=== PATIENT | male | born 1990 | race Caucasian/White ===

== ENCOUNTER 2016-12-02 23:14 | Emergency (ER) | payer SELFPAY ==
--- NOTE | 2016-12-03 05:23 | ER ---
ADMIT: 12/02/2016 RM/LOC: ER [facility] MR#: [id number] [address] [facility] [id number] VIKA FOSTER [address] [place] [id number] Emergency Room Report SEX: M AGE: 25 : 1990 DATE: 12/02/2016 The patient is a 25-year-old male with chronic right ankle instability, complains of pain, swelling with minimal injury. Exam remarkable for morbidly obese male with right lateral malleolar effusion. Negative Homans sign. D- dimer negative. X-ray of right ankle shows old avulsion injury lateral malleolus. Recommend lace-up ankle support. Ice, Tylenol, Motrin as needed. Follow up Dr. Suarez as needed. Dwayne Camejo MD/ siria JOB #: [id number] CC: Dwayne Camejo MD, Attending Physician Inez Thurston MD, Family Physician Merline Suarez MD
== END 2016-12-03 00:45 | disposition home or self-care (01) ==
LOC: ER 23:14
DX: M25.471 Effusion, right ankle (principal); F17.210 Nicotine dependence, cigarettes, uncomplicated; E66.9 Obesity, unspecified; Z79.899 Other long term (current) drug therapy